=== PATIENT | female | born 1970 | race Asian ===

== ENCOUNTER 2020-01-20 08:24 | Emergency (ER) | payer BC, OTHER ==
[~2020-01-20] VITALS: Ht 154.9 cm; Wt 70.3 kg
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
--- NOTE | 2020-01-20 08:38 | NUR ---
patient in the room being seen by dr. greer
--- NOTE | 2020-01-20 08:38 | NUR ---
Ekg obtained by tamika.
[2020-01-20] MEDS ORDERED: ATOR40TA PO (08:39)
[2020-01-20] MEDS ORDERED: CLOP75TA15 PO (08:39)
[2020-01-20] MEDS ORDERED: EZET10TA15 PO (08:39)
[2020-01-20] MEDS ORDERED: ALIS150T PO (08:39)
[2020-01-20] MEDS ORDERED: NAPROXEN 500 MG TABLET ONE (08:42)
[2020-01-20] MEDS ORDERED: NAPROXEN 500 MG TABLET PO ONE (08:45)
--- NOTE | 2020-01-20 09:00 | NUR ---
Patient discharged to home in stable condition. Written and verbal after care instructions given. Patient verbalizes understanding of instructions. Stressed follow up or return to ER for worsening s/s.pt walks in steady gait. pt here to take the pt home.
--- NOTE | 2020-01-20 09:01 | NUR ---
All discharge paperwork given and explained to patient with prescriptions given. patient waiting to be picked up by family members.
[2020-01-20 09:14] VITALS: BP 112/59
== END 2020-01-20 09:00 | disposition home or self-care (01) ==
LOC: ER 08:24
DX: M54.2 Cervicalgia (principal); S20.219A Contusion of unspecified front wall of thorax, initial encounter; S50.11XA Contusion of right forearm, initial encounter; V43.52XA Car driver injured in collision with other type car in traffic accident, initial encounter; Y92.410 Unspecified street and highway as the place of occurrence of the external cause; E78.5 Hyperlipidemia, unspecified; Z86.73 Personal history of transient ischemic attack (TIA), and cerebral infarction without residual deficits; Z79.899 Other long term (current) drug therapy; Z79.02 Long term (current) use of antithrombotics/antiplatelets
CPT/HCPCS: 71045; 93005; A4663